=== PATIENT | male | born 1950 | race Caucasian/White ===

== ENCOUNTER 2019-11-27 09:55 | Emergency (ER) | payer OTHER, MEDICARE ==
[~2019-11-27] VITALS: Ht 180.3 cm; Wt 100.0 kg
[2019-11-27 10:01] VITALS: BP 149/91
[2019-11-27] MEDS ORDERED: TETanus/Pertussis (Acell)/Diphther VAC/PF (Tdap-Adult) 0.5ml syringe IMVAC ONE (10:35)
[2019-11-27] MEDS ORDERED: AMOX-117 PO (13:28)
== END 2019-11-27 13:34 | disposition home or self-care (01) ==
LOC: ER 09:57
DX: S81.812A Laceration without foreign body, left lower leg, initial encounter (principal); Z72.89 Other problems related to lifestyle; Z79.899 Other long term (current) drug therapy; W45.8XXA Other foreign body or object entering through skin, initial encounter; Y93.89 Activity, other specified; Y92.89 Other specified places as the place of occurrence of the external cause; Y99.8 Other external cause status
CPT/HCPCS: 12004; 90471; 90715; 99283

== ENCOUNTER 2020-09-17 12:44 | Emergency (ER) | payer OTHER, MEDICARE ==
[~2020-09-17] VITALS: Ht 180.3 cm; Wt 95.0 kg
[2020-09-17 13:57] LABS: CLARITY,URINE SLIGHTLY CLOUDY (Clear); COLOR,URINE YELLOW (Yellow); GLUCOSE, URINE NEGATIVE (Neg); KETONES,URINE >=80 mg/dl (Neg); LEUKOCYTE ESTERASE ,URINE NEGATIVE (Neg); NITRITES, URINE NEGATIVE (Neg); OCCULT BLOOD,URINE LARGE (Neg); PH,URINE 5.5 (4.8-8.0); PROTEIN,URINE TRACE mg/dl (Neg); UA COLLECTION TYPE CLN CATCH MIDSTREAM; UROBILINOGEN,URINE 0.2 E.U/dL (0.2-1.0)
[2020-09-17 14:10] LABS: MUCUS STRANDS MODERATE /LPF (Neg); SQUAMOUS EPITHELIAL CELL,UR FEW /LPF (FEW)
[2020-09-17 14:11] LABS: RBC,URINE 50-100 /HPF (0-2)
[2020-09-17 14:13] LABS: BACTERIA,URINE FEW /HPF (Neg)
[2020-09-17 14:30] LABS: BASOPHILS % (AUTO) 0.3 % (0-1); EOSINOPHILS % (AUTO) 0.1 % (0-6); HEMATOCRIT 43.2 % (42.0-52.0); HEMOGLOBIN 14.7 g/dl (14.0-17.9); LYMPHOCYTES # (AUTO) 0.9 X10'3 (1.1-4.8); LYMPHOCYTES % (AUTO) 9.8 % (21-51); MEAN CORPUSCULAR HEMOGLOBIN 30.1 PG (27.0-31.0); MEAN CORPUSCULAR HGB CONC 34.1 g/dL (33.0-36.5); MEAN CORPUSCULAR VOLUME 88.2 FL (78-98); MEAN PLATELET VOLUME 9.4 FL (7.4-10.4); MONOCYTES # (AUTO) 0.6 X10'3 (0-0.9); MONOCYTES % (AUTO) 6.6 % (2-12); NEUTROPHILS # (AUTO) 7.7 X10'3 (1.8-7.7); NEUTROPHILS % (AUTO) 83.2 % (42-75); PLATELET COUNT 163 X10'3 (140-440); RED CELL DISTRIBUTION WIDTH 14.2 % (11.5-14.5); WHITE BLOOD COUNT 9.3 X10'3 (4.5-11.0)
--- NOTE | 2020-09-17 14:36 | NUR ---
awaiting blood result.Call light within reach.
[2020-09-17 14:42] LABS: ALANINE AMINOTRANSFERASE 16 U/L (12-78); ALBUMIN/GLOBULIN RATIO 1.3 (1.1-1.5); ALKALINE PHOSPHATASE 57 IU/L (46-116); ANION GAP 8 (8-16); ASPARTATE AMINO TRANSFERASE 12 U/L (10-37); BILIRUBIN,TOTAL 1.1 MG/DL (0.1-1.0); BLOOD UREA NITROGEN 19 MG/DL (7-18); BUN/CREATININE RATIO 17.4 (5.4-32.0); CHLORIDE 103 MMOL/L (99-107); CREATININE 1.09 MG/DL (0.60-1.10); GLUCOSE 112 MG/DL (70-104); LIPASE < 50 U/L (73-393); POTASSIUM 3.8 MMOL/L (3.5-5.1); SODIUM 139 MMOL/L (135-145); TOTAL CARBON DIOXIDE 27.6 MMOL/L (24-32); TOTAL PROTEIN 7.2 G/DL (6.4-8.2); eGFR 66 ML/MIN
[2020-09-17] MEDS ORDERED: normal saline 1000ml 1,000 ML IV ONE (15:40)
--- NOTE | 2020-09-17 15:44 | NUR ---
pt to ct.
[2020-09-17] MEDS ORDERED: FLO0.4C PO (17:17)
[2020-09-17] MEDS ORDERED: HYDR-3965 PO (17:17)
[2020-09-17] MEDS ORDERED: CEPH250T PO (17:17)
[2020-09-17] MEDS ORDERED: ONDA4TAB6 PO (17:17)
[2020-09-17 17:56] VITALS: BP 162/91
== END 2020-09-17 17:52 | disposition home or self-care (01) ==
LOC: ER 12:45
DX: N13.2 Hydronephrosis with renal and ureteral calculous obstruction (principal); N39.0 Urinary tract infection, site not specified; Z72.89 Other problems related to lifestyle; Z79.2 Long term (current) use of antibiotics; Z79.899 Other long term (current) drug therapy; Z87.442 Personal history of urinary calculi
CPT/HCPCS: 36415; 74176; 80053; 81001; 83690; 85025; 87088; 96360; 99285; J7030

== ENCOUNTER 2023-08-16 16:20 | Emergency (ER) | payer OTHER, MEDICARE ==
[~2023-08-16] VITALS: Ht 180.3 cm; Wt 92.0 kg
[~2023-08-16 16:20] MED LIST: ONDA4TAB6 PO
[2023-08-16 16:21] VITALS: BP 149/94; PULSE 98; RESP 16; TEMP 98; O2SAT 96
== END 2023-08-16 17:31 | disposition home or self-care (01) ==
LOC: ER 16:21
DX: F32.A Depression, unspecified (principal); F41.9 Anxiety disorder, unspecified; Z79.899 Other long term (current) drug therapy
CPT/HCPCS: 99281; 99282

== ENCOUNTER 2023-08-19 15:24 | Emergency (ER) | payer OTHER, MEDICARE ==
[~2023-08-19] VITALS: Ht 180.3 cm; Wt 96.0 kg
[2023-08-19 15:59] VITALS: BP 140/76; PULSE 87; RESP 18; TEMP 98; O2SAT 96
== END 2023-08-19 22:59 | disposition left against medical advice (07) ==
LOC: ER 15:25
DX: R41.3 Other amnesia (principal); Z53.21 Procedure and treatment not carried out due to patient leaving prior to being seen by health care provider

== ENCOUNTER 2023-08-20 19:26 | Emergency (ER) | payer OTHER, MEDICARE ==
[~2023-08-20] VITALS: Ht 180.3 cm; Wt 90.9 kg
[2023-08-20 19:55] LABS: EOSINOPHILS # (AUTO) 0.1 X10'3 (0-0.9); HEMOGLOBIN 15.1 g/dl (14.0-17.9); MEAN CORPUSCULAR HEMOGLOBIN 29.8 PG (27.0-31.0)
[2023-08-20 19:57] LABS: BASOPHILS % (AUTO) 0.6 % (0-1); EOSINOPHILS % (AUTO) 1.2 % (0-6); HEMATOCRIT 44.6 % (42.0-52.0); LYMPHOCYTES # (AUTO) 2.1 X10'3 (1.1-4.8); LYMPHOCYTES % (AUTO) 31.5 % (21-51); MEAN CORPUSCULAR HGB CONC 33.8 g/dL (33.0-36.5); MEAN CORPUSCULAR VOLUME 88.3 FL (78-98); MEAN PLATELET VOLUME 8.5 FL (7.4-10.4); MONOCYTES # (AUTO) 0.5 X10'3 (0-0.9); MONOCYTES % (AUTO) 7.6 % (2-12); NEUTROPHILS # (AUTO) 3.9 X10'3 (1.8-7.7); NEUTROPHILS % (AUTO) 59.1 % (42-75); PLATELET COUNT 168 X10'3 (140-440); RED BLOOD COUNT 5.05 X10'6 (4.70-6.10); RED CELL DISTRIBUTION WIDTH 13.8 % (11.5-14.5); WHITE BLOOD COUNT 6.6 X10'3 (4.5-11.0)
[2023-08-20 20:09] LABS: ALANINE AMINOTRANSFERASE 18 U/L (12-78); ALBUMIN 4.2 G/DL (3.4-5.0); ALBUMIN/GLOBULIN RATIO 1.3 (1.1-1.5); ALKALINE PHOSPHATASE 61 IU/L (46-116); ANION GAP 9 (8-16); ASPARTATE AMINO TRANSFERASE 15 U/L (10-37); BILIRUBIN,TOTAL 0.9 MG/DL (0.1-1.0); BLOOD UREA NITROGEN 18 MG/DL (7-18); BUN/CREATININE RATIO 20.2 (10.0-20.0); CHLORIDE 103 MMOL/L (99-107); CREATININE 0.89 MG/DL (0.60-1.10); GLUCOSE 94 MG/DL (70-104); POTASSIUM 3.8 MMOL/L (3.5-5.1); SODIUM 139 MMOL/L (135-145); TOTAL CARBON DIOXIDE 26.7 MMOL/L (24-32); TOTAL PROTEIN 7.4 G/DL (6.4-8.2); eCRCL 76 ML/MIN; eGFR 83 ML/MIN
[2023-08-20 20:18] LABS: ETHANOL < 10 MG/DL (<10); THYROID STIMULATING HORMONE 1.06 ulU/ml (0.34-4.50)
[2023-08-20 20:24] LABS: BILIRUBIN,URINE NEGATIVE (Neg); CLARITY,URINE CLEAR (Clear); COLOR,URINE YELLOW (Yellow); GLUCOSE, URINE NEGATIVE (Neg); KETONES,URINE 15 mg/dl (Neg); LEUKOCYTE ESTERASE ,URINE NEGATIVE (Neg); NITRITES, URINE NEGATIVE (Neg); OCCULT BLOOD,URINE TRACE-INTACT (Neg); PROTEIN,URINE NEGATIVE (Neg); UROBILINOGEN,URINE 0.2 E.U/dL (0.2-1.0)
[2023-08-20 20:26] LABS: UA COLLECTION TYPE CLN CATCH MIDSTREAM
[2023-08-20 20:33] LABS: SQUAMOUS EPITHELIAL CELL,UR FEW /LPF (FEW); URINE AMPHETAMINE SCREEN NEGATIVE (Neg); URINE BARBITUATE SCREEN NEGATIVE (Neg); URINE BENZODIAZEPINES SCREEN NEGATIVE (Neg); URINE CANNABINOID SCREEN NEGATIVE (Neg); URINE COCAINE SCREEN NEGATIVE (Neg); URINE METHADONE SCREEN NEGATIVE (Neg); URINE OPIATE SCREEN NEGATIVE (Neg); URINE PHENCYCLIDINE SCREEN NEGATIVE (Neg)
[2023-08-20 20:34] LABS: RBC,URINE 0-2 /HPF (0-2)
[2023-08-20 20:35] LABS: BACTERIA,URINE NONE SEEN /HPF (Neg); WBC,URINE 0-4 /HPF (0-4)
[2023-08-21 17:54] VITALS: RESP 18
[2023-08-21] MEDS ORDERED: FLO0.4C PO (19:00)
[2023-08-21] MEDS ORDERED: SIMV-42 PO (19:00)
[2023-08-21] MEDS: OLANZapine 2.5MG tablet PO ONE (19:52)
[2023-08-21] MEDS: tamsulosin 0.4mg capsule PO SCH (19:55)
[2023-08-21] MEDS: atorvastatin 10mg tablet PO SCH (19:56)
[2023-08-22 10:39] LABS: COVID19 ID NOW NEGATIVE (Neg)
[2023-08-22 11:24] VITALS: BP 112/66; PULSE 58; TEMP 96.9; O2SAT 98
== END 2023-08-22 11:27 ==
LOC: ER 19:27
DX: F22 Delusional disorders (principal); Z20.822 Contact with and (suspected) exposure to COVID-19
CPT/HCPCS: 36415; 80053; 80305; 80320; 81001; 84443; 85025; 87635; 87811; 99285; C2617; 99284